=== PATIENT | male | born 2000 | race Caucasian/White ===

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

== ENCOUNTER 2021-05-23 09:41 | Emergency (ER) | payer SELFPAY ==
[2021-05-23 09:48] VITALS: BP 154/90; PULSE 124; RESP 16; TEMP 36.9; O2SAT 97; BMI 27.1
--- NOTE | 2021-05-23 10:03 | ED_ITS ---
Documented by User: WILLIAM Gomez 05/23/21 11:37 HPI - Weakness General: Chief complaint: Weakness Stated complaint: Numbess Time Seen by Provider: 05/23/21 09:45 History of Present Illness: Patient arrives complain about diarrhea x1 week. Said he is able to eat and drink but is just coming out the other end. That he feels dizzy when he stands up. Has been exposed to some people sick at work. Patient also states he has some anxiety in life and that he is getting ready to move out from his home into an apartment and that worries him. Patient said he drinks 2-3 beers a night while he is on the computer talking other folks. Denies any depression. Does not drink any energy drinks. Takes Zoloft for anxiety. Has had some chills denies fever. Associated symptoms: Reports nausea; Denies chest pain, chills, fever(s), headache(s) or vomiting Review of Systems Const: Denies: fever(s), chills or body aches Eyes: Denies: eye discomfort ENMT: Denies: throat pain Card: Denies: chest pain Resp: Denies: dyspnea GI: Reports: nausea and diarrhea; Denies: abdominal pain or vomiting Skin/Breast: Denies: rash Neuro: Denies: headache(s) Psych: Denies: depression or suicidal ideation [facility] ED PFSH: Medical History (Updated 05/23/21 @ 11:33 by WILLIAM Gomez) Anxiety History of abdominal hernia Family History (Updated 01/03/21 @ 09:20 by Daja Brewer LPN) Other CAD (coronary artery disease) Diabetes Social History (Updated 01/03/21 @ 09:20 by Daja Brewer LPN) Smoking and tobacco status: former smoker Alcohol intake: current Alcohol intake frequency: holidays/special occasions only Marital status: Single Number of children: 0 Current occupational status: employed Physical Exam Const: COMMON NORMALS: no acute distress, patient oriented x3 and alert HENMT: COMMON NORMALS: normocephalic and external ears normal HEAD & SCALP: normocephalic EXTERNAL EAR: Yes external ears normal Eye: COMMON NORMALS: EOMs intact bilaterally Neck/C-Spine: COMMON NORMALS: no JVD Resp: COMMON NORMALS: normal respiratory effort and No use of accessory muscles Cardio: COMMON NORMALS: no JVD RATE: tachycardic GI: AUSCULTATION: Yes Hyperactive bowel sounds present PALPATION: Yes Tenderness to palpation present (GI) (Generalized) Extremity: COMMON NORMALS: normal to inspection and full ROM Neuro: COMMON NORMALS: patient oriented x3 SENSORIUM/ORIENTATION: Yes alert Psych: COMMON NORMALS: mental status grossly normal Skin: COMMON NORMALS: no rashes or lesions noted GENERAL SKIN EXAM: no rashes or lesions noted Course Vital Signs: Vital signs: Vital Signs Temperature 98.4 F 05/23/21 09:48 Pulse Rate 82 05/23/21 11:30 Respiratory Rate 18 05/23/21 11:30 Blood Pressure 154/82 05/23/21 11:30 Pulse Oximetry 98 05/23/21 11:30 MDM - Weakness Medical Decision Making Patient presents with diarrhea and numbness in his body. Patient also going through increased amount of stress in his life. After reviewing labs and having a long discussion with patient it seems that patient's problems were related to anxiety and stress in his life. Patient's been on Zoloft for couple months of 50 mg and has had some mild improvement. Patient is asking what else can have that would help him. I recommend going to [facility] and have a counselor to get some tools in his toolbox to work through his anxiety that he feels. His dad age 14 he moved up from his mother's house he just recently and he is going to school full-time working full-time and just has a lot of stressors. Patient does not appear to have any infection that might be causing his diarrhea and I believe his diarrhea is possibly caused by his increased stress. Given couple days off work so recuperate encourage exercise eating correctly take medications as prescribed and follow-up with [facility]. Lab Data : 05/23/21 10:25 05/23/21 10:25 Laboratory Results WBC 6.2 10^3/uL (4.5-13.0) 05/23/21 10:25 RBC 5.51 10^6/uL (4.1-5.3) H 05/23/21 10:25 Hgb 16.6 g/dL (11.7-16.6) 05/23/21 10:25 Hct 49.2 % (42.0-52.0) 05/23/21 10:25 MCV 89.3 fl (80-94) 05/23/21 10:25 MCH 30.1 pg (28.0-34.0) 05/23/21 10:25 MCHC 33.7 g/dL (30.0-36.0) 05/23/21 10:25 RDW 11.9 % (12.1-15.1) L 05/23/21 10:25 Plt Count 268 10^3/cmm (130-400) 05/23/21 10:25 MPV 10.0 fL (7.4-10.4) 05/23/21 10:25 Neut % (Auto) 50.6 % 05/23/21 10:25 Lymph % (Auto) 36.4 % 05/23/21 10:25 Manati % (Auto) 10.7 % 05/23/21 10:25 Eos % (Auto) 1.5 % 05/23/21 10:25 Baso % (Auto) 0.5 % 05/23/21 10:25 Neut # (Auto) 3.11 10^3/uL (1.8-8.0) 05/23/21 10:25 Lymph # (Auto) 2.2 10^3/uL (1.5-6.5) 05/23/21 10:25 [place]ati # (Auto) 0.7 10^3/uL (0.2-0.9) 05/23/21 10:25 Eos # (Auto) 0.1 10^3/uL (0.0-0.8) 05/23/21 10:25 Baso # (Auto) 0.0 10^3/uL (0.0-0.1) 05/23/21 10:25 Nucleated RBC % (auto) 0 % 05/23/21 10:25 Nucleated RBCs # 0.0 /100WBC 05/23/21 10:25 Sodium 139 mmol/L (136-145) 05/23/21 10:25 Potassium 4.1 mmol/L (3.5-5.1) 05/23/21 10:25 Chloride 102 mmol/L (98-107) 05/23/21 10:25 Carbon Dioxide 26 mmol/L (22-29) 05/23/21 10:25 Anion Gap 15.1 (5-19) 05/23/21 10:25 BUN 10 mg/dL (6-20) 05/23/21 10:25 Creatinine 0.6 mg/dL (0.7-1.2) L 05/23/21 10:25 GFR Calculation 171.8 mL/min (90-130) H 05/23/21 10:25 Glucose 136 mg/dL (65-115) H 05/23/21 10:25 Calculated Osmolality 289 mOsm/kg (285-295) 05/23/21 10:25 Calcium 9.3 mg/dL (8.5-10.5) 05/23/21 10:25 Total Bilirubin 0.7 mg/dL (0.15-1.2) 05/23/21 10:25 AST 26 U/L (0-40) 05/23/21 10:25 ALT 21 U/L (0-41) 05/23/21 10:25 Alkaline Phosphatase 69 IU/L (40-130) 05/23/21 10:25 Total Protein 7.8 g/dL (6.6-8.7) 05/23/21 10:25 Albumin 5.3 g/dL (3.5-5.2) H 05/23/21 10:25 Globulin 2.5 g/dL (1.3-4.6) 05/23/21 10:25 Discharge Plan Discharge Patient Disposition: Home Clinical Impression: ROLANDA (generalized anxiety disorder), Diarrhea Condition: Stable Prescriptions: New Zoloft 100 mg tablet 100 mg PO DAILY Qty: 20 0RF Lomotil 2.5-0.025 mg tablet 1 tab PO TID PRN (Reason: diarrhea) Qty: 10 0RF Discontinued sertraline 50 mg tablet 50 mg PO DAILY Qty: 30 1RF Discharge Orders: Discharge ED (Routine); Ordered 05/23/21 Ordered By: Last Holly Referrals: Tommie Rivera MD [Primary Care Provider] - Discharge Diet: Advance as tolerated Discharge Activity: Resume usual activity Patient Instructions: Acute Diarrhea (ED), Anxiety (ED) Activity Restrictions/Additional Instructions: Follow-up with medical provider as directed. Take medications as prescribed. Return to the ER or your medical provider if condition worsens. Please read and understand discharge instructions. If any questions ask please. Hospital will contact you with appointment for behavioral health care. Stop your Zoloft 50 mg and started on the 100 mg. Stand Alone Forms: Work/School Release Coding Level of Care Code ED Forming Machine Upkeep Mechanic Helper for Chg Fwd Exam Comprehensive Documented by User: Tevin Cole DO 05/23/21 13:22 HPI - Weakness General: Chief complaint: Weakness Stated complaint: Numbess Time Seen by Provider: 05/23/21 09:45 [facility] ED PFSH: Medical History (Updated 05/23/21 @ 11:33 by WILLIAM Gomez) Anxiety History of abdominal hernia Family History (Updated 01/03/21 @ 09:20 by Daja Brewer LPN) Other CAD (coronary artery disease) Diabetes Social History (Updated 01/03/21 @ 09:20 by Daja Brewer LPN) Smoking and tobacco status: former smoker Alcohol intake: current Alcohol intake frequency: holidays/special occasions only Marital status: Single Number of children: 0 Current occupational status: employed Course Vital Signs: Vital signs: Vital Signs Temperature 98.4 F 05/23/21 09:48 Pulse Rate 82 05/23/21 11:30 Respiratory Rate 18 05/23/21 11:30 Blood Pressure 154/82 05/23/21 11:30 Pulse Oximetry 98 05/23/21 11:30 MDM - Weakness Medical Decision Making Patient presents with diarrhea and numbness in his body. Patient also going through increased amount of stress in his life. After reviewing labs and having a long discussion with patient it seems that patient's problems were related to anxiety and stress in his life. Patient's been on Zoloft for couple months of 50 mg and has had some mild improvement. Patient is asking what else can have that would help him. I recommend going to [facility] and have a counselor to get some tools in his toolbox to work through his anxiety that he feels. His dad age 14 he moved up from his mother's house he just recently and he is going to school full-time working full-time and just has a lot of stressors. Patient does not appear to have any infection that might be causing his diarrhea and I believe his diarrhea is possibly caused by his increased stress. Given couple days off work so recuperate encourage exercise eating correctly take medications as prescribed and follow-up with [facility]. Chart reviewed and patient discussed with [facility]. Agree with assessment and plan. Lab Data : 05/23/21 10:25 05/23/21 10:25 Laboratory Results WBC 6.2 10^3/uL (4.5-13.0) 05/23/21 10:25 RBC 5.51 10^6/uL (4.1-5.3) H 05/23/21 10:25 Hgb 16.6 g/dL (11.7-16.6) 05/23/21 10:25 Hct 49.2 % (42.0-52.0) 05/23/21 10:25 MCV 89.3 fl (80-94) 05/23/21 10:25 MCH 30.1 pg (28.0-34.0) 05/23/21 10:25 MCHC 33.7 g/dL (30.0-36.0) 05/23/21 10:25 RDW 11.9 % (12.1-15.1) L 05/23/21 10:25 Plt Count 268 10^3/cmm (130-400) 05/23/21 10:25 MPV 10.0 fL (7.4-10.4) 05/23/21 10:25 Neut % (Auto) 50.6 % 05/23/21 10:25 Lymph % (Auto) 36.4 % 05/23/21 10:25 Manati % (Auto) 10.7 % 05/23/21 10:25 Eos % (Auto) 1.5 % 05/23/21 10:25 Baso % (Auto) 0.5 % 05/23/21 10:25 Neut # (Auto) 3.11 10^3/uL (1.8-8.0) 05/23/21 10:25 Lymph # (Auto) 2.2 10^3/uL (1.5-6.5) 05/23/21 10:25 [place] # (Auto) 0.7 10^3/uL (0.2-0.9) 05/23/21 10:25 Eos # (Auto) 0.1 10^3/uL (0.0-0.8) 05/23/21 10:25 Baso # (Auto) 0.0 10^3/uL (0.0-0.1) 05/23/21 10:25 Nucleated RBC % (auto) 0 % 05/23/21 10:25 Nucleated RBCs # 0.0 /100WBC 05/23/21 10:25 Sodium 139 mmol/L (136-145) 05/23/21 10:25 Potassium 4.1 mmol/L (3.5-5.1) 05/23/21 10:25 Chloride 102 mmol/L (98-107) 05/23/21 10:25 Carbon Dioxide 26 mmol/L (22-29) 05/23/21 10:25 Anion Gap 15.1 (5-19) 05/23/21 10:25 BUN 10 mg/dL (6-20) 05/23/21 10:25 Creatinine 0.6 mg/dL (0.7-1.2) L 05/23/21 10:25 GFR Calculation 171.8 mL/min (90-130) H 05/23/21 10:25 Glucose 136 mg/dL (65-115) H 05/23/21 10:25 Calculated Osmolality 289 mOsm/kg (285-295) 05/23/21 10:25 Calcium 9.3 mg/dL (8.5-10.5) 05/23/21 10:25 Total Bilirubin 0.7 mg/dL (0.15-1.2) 05/23/21 10:25 AST 26 U/L (0-40) 05/23/21 10:25 ALT 21 U/L (0-41) 05/23/21 10:25 Alkaline Phosphatase 69 IU/L (40-130) 05/23/21 10:25 Total Protein 7.8 g/dL (6.6-8.7) 05/23/21 10:25 Albumin 5.3 g/dL (3.5-5.2) H 05/23/21 10:25 Globulin 2.5 g/dL (1.3-4.6) 05/23/21 10:25 Discharge Plan Discharge Patient Disposition: Home Clinical Impression: ROLANDA (generalized anxiety disorder), Diarrhea Condition: Stable Prescriptions: New Zoloft 100 mg tablet 100 mg PO DAILY Qty: 20 0RF Lomotil 2.5-0.025 mg tablet 1 tab PO TID PRN (Reason: diarrhea) Qty: 10 0RF Discontinued sertraline 50 mg tablet 50 mg PO DAILY Qty: 30 1RF Discharge Orders: Discharge ED (Routine); Ordered 05/23/21 Ordered By: Last Holly Referrals: Tommie Rivera MD [Primary Care Provider] - Discharge Diet: Advance as tolerated Discharge Activity: Resume usual activity Patient Instructions: Acute Diarrhea (ED), Anxiety (ED) Activity Restrictions/Additional Instructions: Follow-up with medical provider as directed. Take medications as prescribed. Return to the ER or your medical provider if condition worsens. Please read and understand discharge instructions. If any questions ask please. Hospital will contact you with appointment for behavioral health care. Stop your Zoloft 50 mg and started on the 100 mg. Stand Alone Forms: Work/School Release Coding Level of Care Code ED Forming Machine Upkeep Mechanic Helper for Kelsy Fwd Exam Comprehensive
[2021-05-23 10:22] VITALS: BP 147/98; BP 166/89; BP 169/80; PULSE 104; PULSE 113; PULSE 96
[2021-05-23] MEDS: diphenoxylate/atropine Tablet 1 TAB PO (10:25)
[2021-05-23] MEDS: lactated ringers 1,000 ML 999 ML IV (10:25)
[2021-05-23 10:32] LABS: Basophils % 0.5 %; Eosinophils # 0.1 10^3/uL (0.0-0.8); Eosinophils % 1.5 %; Hematocrit 49.2 % (42.0-52.0); Hemoglobin 16.6 g/dL (11.7-16.6); Lymphocytes # 2.2 10^3/uL (1.5-6.5); Lymphocytes % 36.4 %; Mean Corpuscular HGB Conc 33.7 g/dL (30.0-36.0); Mean Corpuscular Hemoglobin 30.1 pg (28.0-34.0); Mean Corpuscular Volume 89.3 fl (80-94); Monocytes # 0.7 10^3/uL (0.2-0.9); Monocytes % 10.7 %; Neutrophils # 3.11 10^3/uL (1.8-8.0); Neutrophils % 50.6 %; Nucleated Red Blood Cells % 0 %; Platelet Count 268 10^3/cmm (130-400); Red Blood Count 5.51 10^6/uL (4.1-5.3); Red Cell Distribution Width 11.9 % (12.1-15.1); White Blood Count 6.2 10^3/uL (4.5-13.0)
[2021-05-23 11:00] LABS: Alanine Aminotransferase 21 U/L (0-41); Albumin Level 5.3 g/dL (3.5-5.2); Alkaline Phosphatase 69 IU/L (40-130); Anion Gap 15.1 (5-19); Aspartate Amino Transferase 26 U/L (0-40); Blood Urea Nitrogen 10 mg/dL (6-20); Calcium 9.3 mg/dL (8.5-10.5); Carbon Dioxide 26 mmol/L (22-29); Chloride 102 mmol/L (98-107); Globulin 2.5 g/dL (1.3-4.6); Glomerular Filtration Rate 171.8 mL/min (90-130); Glucose 136 mg/dL (65-115); Osmolality Calculated 289 mOsm/kg (285-295); Potassium 4.1 mmol/L (3.5-5.1); Sodium 139 mmol/L (136-145); Total Bilirubin 0.7 mg/dL (0.15-1.2); Total Protein 7.8 g/dL (6.6-8.7)
[2021-05-23 11:30] VITALS: BP 154/82; PULSE 82; RESP 18; O2SAT 98
== END 2021-05-23 11:44 | disposition home or self-care (01) ==
PROVIDERS: Emergency Provider Nurse Practitioner Family; PCP Family Medicine Adult Medicine
DX: F41.1 Generalized anxiety disorder (principal); R19.7 Diarrhea, unspecified; Z87.891 Personal history of nicotine dependence
CPT/HCPCS: 80053; 85025; 96360; 99283

== ENCOUNTER 2021-07-03 03:26 | Emergency (ER) | payer SELFPAY ==
--- NOTE | 2021-07-03 03:28 | W.ED.HA ---
HPI - Headache General: Chief Complaint: Anxiety Stated Complaint: Headache Time Seen by Provider: 07/03/21 03:28 History of Present Illness: Mr. Fuentes is a 21-year-old gentleman with history of anxiety who presents to the emergency department due to insomnia and headache as well as anxiety. He reports trying to go to sleep earlier this past evening and having difficulty. He tried meditation but feels like he still cannot sleep. He has perhaps occasionally had similar episodes in the past. He describes a bitemporal throbbing headache which is not the worst headache of his life, was not thunderclap in onset, and no associated fevers or neck stiffness, no other red flags appreciated. He endorses poor compliance with Zoloft and has not tried over the counter medications for sleep aid. Intensity of anxiety is mild to moderate lately. Denies new social stressors, caffeine intake changes, or other known provoking factors. He notes mild chest discomfort at times associated with a recent change to eating more in the afternoon/early evening. Otherwise denies significant changes in health, and no other exacerbating or alleviating factors identified. Pertinent past history: other Onset (ago): hour(s) Onset description: gradually Location: temporal Severity: mild Quality & Timing: throbbing Exacerbating factors: none Relieving factors: nothing Review of Systems General: Reports: 10 or more systems reviewed and unremarkable except in HPI and below PFSH ED PFSH: Medical History Anxiety History of abdominal hernia Family History Other CAD (coronary artery disease) Diabetes Social History Smoking and tobacco status: former smoker Alcohol intake: current Alcohol intake frequency: holidays/special occasions only Marital status: Single Number of children: 0 Current occupational status: employed Physical Exam Const: COMMON NORMALS: alert GENERAL APPEARANCE: cooperative and well developed HENMT: COMMON NORMALS: normocephalic and atraumatic HEAD & SCALP: normocephalic and atraumatic Eye: COMMON NORMALS: conjunctivae normal CONJUNCTIVA: Yes conjunctivae normal SCLERA: sclerae normal Neck/C-Spine: COMMON NORMALS: supple and no meningeal signs GENERAL: Yes trachea midline Resp: COMMON NORMALS: clear to auscultation bilaterally EFFORT & INSPECTION: Yes able to speak in complete sentences AUSCULTATION: clear to auscultation bilaterally Cardio: COMMON NORMALS: regular rate and regular rhythm RATE: regular rate RHYTHM: regular rhythm GI: COMMON NORMALS: Soft to palpation PALPATION: Yes Soft to palpation and No Tenderness to palpation present (GI) Extremity: GENERAL: Yes normal exam except as noted and No edema Neuro: COMMON NORMALS: moves all extremities SENSORIUM/ORIENTATION: Yes alert and No Orientation impaired MENINGEAL SIGNS: Yes no meningeal signs Psych: COMMON NORMALS: mental status grossly normal and Normal thought process present THOUGHT PROCESS: Normal thought process present Course ED course: - Patient was seen and evaluated by me at bedside - Vital signs obtained - Initial evaluation notable for exam as above - EKG at 0401 personally interpreted by me. Sinus rhythm with mild nonspecific abnormalities. No STEMI. - Patient counseled on possible etiologies including multifactorial nature of insomnia. Recommended to trial Benadryl or melatonin. Additionally for chest discomfort may trial medication for GERD. Offered prescriptions for the patient expressed that he will pick them up [id number]. - Based on patient history, evaluation, and testing as interpreted the most likely cause of the patient's condition is anxiety and insomnia as well as headache -I discussed followup plan and return precautions. The patient verbalized understanding and felt safe for discharge. - Patient discharged in satisfactory condition. Note: Click bubbles or prepopulated butler in note writing are used for assistance with data collection and billing and are inherently more limited than narrative and other text portions of this note. Please use narrative for additional clinical history and defer to narrative/free test for any case of contradictory information. If information appears in only free text or click bubble it should be considered present or absent as reported. Please contact note television script writer for clarifications of clinical information or contradictory information. MDM is a brief summary, contradictory or erroneous seeming information should be clarified and full note should be reviewed. Vital Signs: Vital signs: Vital Signs Temperature 98.7 F 07/03/21 03:32 Pulse Rate 90 07/03/21 04:16 Respiratory Rate 18 07/03/21 04:16 Blood Pressure 148/71 07/03/21 04:16 Pulse Oximetry 95 07/03/21 04:16 MDM - Headache Medical Decision Making 21-year-old gentleman with history of anxiety not reliably taking his Zoloft presenting due to insomnia and headache. No red flag symptoms regarding headache, no reported trauma. Discussed multifactorial nature of insomnia and gave suggestions with regard to trial of [id number] medications. Patient satisfactory for continued outpatient follow-up. Medical Records I reviewed the patient's medical records. Lab Data I reviewed the patient's lab results. Discharge Plan Discharge Patient Disposition: Home Clinical Impression: Anxiety, Insomnia, Headache Condition: Stable Prescriptions: No Action Zoloft 100 mg tablet 100 mg PO DAILY Qty: 20 0RF Lomotil 2.5-0.025 mg tablet 1 tab PO TID PRN (Reason: diarrhea) Qty: 10 0RF Discharge Orders: Discharge ED (Routine); Ordered 07/03/21 Ordered By: Diego Gross Referrals: Tommie Rivera MD [Primary Care Provider] - Discharge Diet: Usual diet Discharge Activity: Resume usual activity Patient Instructions: Chest Pain (ED), Acute Headache (ED), Insomnia (ED) Activity Restrictions/Additional Instructions: Thank you for visiting the emergency department. You were seen and evaluated for difficulty sleeping associated with chest discomfort and also headache. The exact cause of your symptoms is unclear though likely multifactorial. You may use [id number] medications such as Benadryl and/or melatonin as a sleep aid. For the chest discomfort I would recommend using a proton pump inhibitor or H2 ivan which can also be purchased [id number] and see if this helps. Additionally, as discussed I recommend follow-up with your primary care provider regarding your Zoloft. Please return to the emergency department for worsening symptoms or anything else that you are concerned about and feel needs emergency department evaluation. Stand Alone Forms: Work/School Release Coding Level of Care Code ED Variety Saw Operator for Kelsy Abel
[2021-07-03 03:32] VITALS: BP 155/82; PULSE 90; RESP 18; TEMP 37.1; O2SAT 97; BMI 25.8
[2021-07-03 03:47] VITALS: BP 149/95; PULSE 86; RESP 17; O2SAT 96
--- NOTE | 2021-07-03 03:56 | ECG_ITS ---
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 Measurements Intervals [place] Rate: 78 P: 53 KS: 137 QRS: 69 QRSD: 113 T: 47 QT: 369 QTc: 421 Interpretive Statements SINUS RHYTHM WITH SINUS ARRHYTHMIA MODERATE INTRAVENTRICULAR CONDUCTION DELAY [110+ ms QRS DURATION] Compared to ECG 12/13/2020 18:48:19 Intraventricular conduction delay now present Electronically Signed On 07-03-2021 23:30:47 CDT by Yaritza Pandya M.D. [id number]
[2021-07-03 04:16] VITALS: BP 148/71; PULSE 90; RESP 18; O2SAT 95
== END 2021-07-03 04:18 | disposition home or self-care (01) ==
PROVIDERS: Emergency Provider Emergency Medicine; PCP Family Medicine Adult Medicine
DX: F41.9 Anxiety disorder, unspecified (principal); Z87.891 Personal history of nicotine dependence; G47.00 Insomnia, unspecified; R51.9 Headache, unspecified
CPT/HCPCS: 93005; 99282

== ENCOUNTER 2021-08-02 12:50 | Emergency (ER) | payer SELFPAY ==
[2021-08-02 13:01] VITALS: BP 172/100; PULSE 88; RESP 18; TEMP 37.5; O2SAT 97; BMI 27.9
--- NOTE | 2021-08-02 14:33 | CT_ITS ---
WS: [id number] CT HEAD NONCONTRAST HISTORY: headache TECHNIQUE: Contiguous axial imaging performed through the brain in 2.5 mm imaging. Bone and soft tiss ue windows. Sagittal and coronal reformats reviewed. All CT scans at [facility] use at least one of these dose optimization techniques: automated exposure control; mA and/or kV adjustment per pa tient size (includes targeted exams where dose is matched to clinical indication); or iterative recon struction. DLP: 881.3 mGy.cm COMPARISON: None available. No acute intracranial hemorrhage, midline shift or mass effect. No atrophy or prior infarcts or herniation. Ventricles: Normal size with no hydrocephalus. Paranasal sinuses: As visualized are clear. Mastoid air cells: Well pneumatized. Calvarium and scalp: Skull is intact with no soft tissue edema or swelling. CT/CT head wo con* [id number] IMPRESSION: Negative head CT.
--- NOTE | 2021-08-02 14:33 | ECG_ITS ---
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 Measurements Intervals [place] Rate: 70 P: 51 OK: 143 QRS: 74 QRSD: 109 T: 40 QT: 356 QTc: 387 Interpretive Statements SINUS RHYTHM Compared to ECG 07/03/2021 04:01:00 Sinus arrhythmia no longer present Intraventricular conduction delay no longer present Electronically Signed On 08-02-2021 20:40:56 CDT by Konrad Santos M.D. [id number]
--- NOTE | 2021-08-02 14:43 | ED_ITS ---
HPI - Weakness General: Chief complaint: Weakness Stated complaint: High Blood Pressure, fogginess, and neck area pain Time Seen by Provider: 08/02/21 14:33 History of Present Illness: Patient is a 21-year-old male comes to the ED with chest pain and high blood pressure. Patient was seen here in the ED on July 03 for similar complaint. he has been having chest pain now for over a month. He says the pain is located in the front part of his chest and then wraps around to his back. He rates the pain an 8 out of 10. He also endorses having a headache as well that feels like a pulsating pressure in his temples. He states that his headache has been going on now for over a month as well. Today while at work he checked his blood pressure and he had elevated blood pressure of 170s/ 116 while standing and then sat down and checked it again and it was 156/96. He is not on any blood pressure medication currently. Denies any numbness tingling to face or extremities or any weakness to 1 side of his body. Associated symptoms: Reports chest pain and headache(s); Denies chills, dysuria, fever(s), nausea or vomiting Review of Systems Const: Denies: fever(s), chills or fatigue Eyes: Denies: change in vision or eye discomfort ENMT: Denies: throat pain, odynophagia, nasal discharge or nasal congestion Card: Reports: chest pain; Denies: palpitations, edema, swelling of feet/ankles, dyspnea on exertion or orthopnea Resp: Denies: dyspnea, productive cough or non-productive cough GI: Denies: abdominal pain, nausea, vomiting, diarrhea, constipation or hematochezia : Denies: flank pain, difficulty urinating, dysuria or hematuria Musc: Denies: neck pain, back pain or extremity swelling Skin/Breast: Denies: rash or new lesions Neuro: Reports: headache(s); Denies: numbness in extremities or weakness in extremities [facility] ED PFSH: Medical History Anxiety History of abdominal hernia Family History Other CAD (coronary artery disease) Diabetes Social History Smoking and tobacco status: former smoker Alcohol intake: current Alcohol intake frequency: holidays/special occasions only Marital status: Single Number of children: 0 Current occupational status: employed Physical Exam Narrative: EXAM NARRATIVE: Patient is a 21-year-old male that appears very anxious here in the ED. He is asking me a lot of questions and is seems very worried about his health. Const: COMMON NORMALS: no acute distress, patient oriented x3, healthy appearing and alert GENERAL APPEARANCE: cooperative and anxious HENMT: COMMON NORMALS: normocephalic HEAD & SCALP: normocephalic MOUTH: Normal oral and palatal mucosa present THROAT: posterior oropharynx normal and uvula midline Eye: COMMON NORMALS: Equal, round and reactive pupils present, EOMs intact bilaterally and conjunctivae normal CONJUNCTIVA: Yes conjunctivae normal PUPIL: Yes Equal, round and reactive pupils present Neck/C-Spine: COMMON NORMALS: supple GENERAL: Yes normal visual inspection Resp: COMMON NORMALS: normal respiratory effort, No retractions, No use of accessory muscles and clear to auscultation bilaterally AUSCULTATION: clear to auscultation bilaterally Cardio: COMMON NORMALS: regular rate, regular rhythm, S1 normal heart sound present, S2 normal heart sound present, No gallops present (Cardio), No clicks present (Cardio), No murmurs present (Cardio) and Peripheral pulses 2+ throughout RATE: regular rate RHYTHM: regular rhythm HEART SOUNDS: S1 normal heart sound present and S2 normal heart sound present PERIPHERAL PULSES: Peripheral pulses 2+ throughout GI: COMMON NORMALS: Normal to inspection, nondistended, normoactive bowel sounds present, Soft to palpation, non-tender and no masses PALPATION: Yes Soft to palpation : COMMON NORMALS: Yes no CVA tenderness BLADDER/KIDNEY EXAM: Yes no CVA tenderness Back/Pelvis: COMMON NORMALS: no CVA tenderness Extremity: COMMON NORMALS: normal to inspection Neuro: COMMON NORMALS: patient oriented x3, CN's II-XII intact bilaterally, moves all extremities, no focal motor deficits and no sensory deficits noted SENSORIUM/ORIENTATION: Yes alert COORDINATION/BALANCE: [id number] test normal SPEECH: speech normal SENSORY EXAM: Yes extremities (intact) MOTOR EXAM: 5/5 motor strength present throughout COORDINATION: [id number] test normal Skin: GENERAL SKIN EXAM: dry skin Course Vital Signs: Vital signs: Vital Signs Temperature 99.5 F 08/02/21 13:01 Pulse Rate 88 08/02/21 13:01 Respiratory Rate 18 08/02/21 15:19 Blood Pressure 146/87 08/02/21 15:19 Pulse Oximetry 97 08/02/21 15:19 MDM - Weakness Medical Decision Making Patient is a 21-year-old male who comes to the ED with chest pain. He was seen here in the ED for same complaint back on July 03 and was diagnosed with anxiety. Patient said his feelings of chest pain and headache have been going on now for several months. Vitals are stable and patient appears in no acute distress or pain. He does appear very anxious and worried about his health. The rest of his exam is benign. Labs are all unremarkable troponin negative. Head CT was normal and chest x-ray showed no acute findings. EKG showed normal sinus rhythm with no ST segment elevation or depression seen. Patient diagnosed with anxiety and was stable for discharge home. Patient did not want any anxiety meds at this time and was put on sertraline a month ago to help with anxiety and has not started taking it yet. I encouraged him to follow-up with his doctor in the next week and consider taking the sertraline to help with anxiety. Return to ED precautions given. Patient understood and agreed with plan. Lab Data I reviewed the patient's lab results. : 08/02/21 15:05 08/02/21 15:[address] 08/02/21 14:33 IMPRESSION: Negative head CT. Chest X-Ray 08/02/21 15:10 IMPRESSION: No acute chest abnormality. Laboratory Results WBC 8.1 10^3/uL (4.5-13.0) 08/02/21 15:05 RBC 5.10 10^6/uL (4.1-5.3) 08/02/21 15:05 Hgb 15.9 g/dL (11.7-16.6) 08/02/21 15:05 Hct 46.9 % (42.0-52.0) 08/02/21 15:05 MCV 92.0 fl (80-94) 08/02/21 15:05 MCH 31.2 pg (28.0-34.0) 08/02/21 15:05 MCHC 33.9 g/dL (30.0-36.0) 08/02/21 15:05 RDW 11.9 % (12.1-15.1) L 08/02/21 15:05 Plt Count 233 10^3/cmm (130-400) 08/02/21 15:05 MPV 9.9 fL (7.4-10.4) 08/02/21 15:05 Neut % (Auto) 76.8 % 08/02/21 15:05 Lymph % (Auto) 14.1 % 08/02/21 15:05 [place] % (Auto) 8.2 % 08/02/21 15:05 Eos % (Auto) 0.1 % 08/02/21 15:05 Baso % (Auto) 0.4 % 08/02/21 15:05 Neut # (Auto) 6.24 10^3/uL (1.8-8.0) 08/02/21 15:05 Lymph # (Auto) 1.2 10^3/uL (1.5-6.5) L 08/02/21 15:05 [place] # (Auto) 0.7 10^3/uL (0.2-0.9) 08/02/21 15:05 Eos # (Auto) 0.0 10^3/uL (0.0-0.8) 08/02/21 15:05 Baso # (Auto) 0.0 10^3/uL (0.0-0.1) 08/02/21 15:05 Nucleated RBC % (auto) 0 % 08/02/21 15:05 Nucleated RBCs # 0.0 /100WBC 08/02/21 15:05 Sodium 142 mmol/L (136-145) 08/02/21 15:05 Potassium 4.3 mmol/L (3.5-5.1) 08/02/21 15:05 Chloride 105 mmol/L (98-107) 08/02/21 15:05 Carbon Dioxide 25 mmol/L (22-29) 08/02/21 15:05 Anion Gap 16.3 (5-19) 08/02/21 15:05 BUN 8 mg/dL (6-20) 08/02/21 15:05 Creatinine 0.7 mg/dL (0.7-1.2) 08/02/21 15:05 GFR Calculation 143.8 mL/min (90-130) H 08/02/21 15:05 Glucose 117 mg/dL (65-115) H 08/02/21 15:05 Calculated Osmolality 293 mOsm/kg (285-295) 08/02/21 15:05 Calcium 10.0 mg/dL (8.5-10.5) 08/02/21 15:05 Total Bilirubin 0.3 mg/dL (0.15-1.2) 08/02/21 15:05 AST 19 U/L (0-40) 08/02/21 15:05 ALT 20 U/L (0-41) 08/02/21 15:05 Alkaline Phosphatase 70 IU/L (40-130) 08/02/21 15:05 Troponin T Gen 5 ng/L 6 ng/L (0-15) 08/02/21 15:05 Total Protein 7.5 g/dL (6.6-8.7) 08/02/21 15:05 Albumin 5.1 g/dL (3.5-5.2) 08/02/21 15:05 Globulin 2.4 g/dL (1.3-4.6) 08/02/21 15:05 EKG Data EKG 1: EKG interpretation date: 08/02/21 Interpretation: Normal sinus rhythm, 70 bpm, no ST segment elevation or depression seen. Discharge Plan Discharge Patient Disposition: Home Clinical Impression: Anxiety Condition: Stable Prescriptions: No Action multivitamin Tablet 1 tab PO DAILY 0RF Discharge Orders: Discharge ED (Routine); Ordered 08/02/21 Ordered By: Hesham Benz Referrals: Tommie Rivera MD [Primary Care Provider] - Discharge Diet: Regular Discharge Activity: Resume usual activity Patient Instructions: Anxiety (ED) Activity Restrictions/Additional Instructions: Follow-up with medical provider as directed in the next 1 to 2 weeks for reevaluation. Continue taking all home medications as previously prescribed. Return to the ER or your medical provider if condition worsens. Please read and understand discharge instructions. Thank you for choosing [facility] for your healthcare needs today. Please realize this is an emergency room and that we are providing you with a medical screening exam and this may not be complete and all inclusive of all the testing and or work up that you may need to determine your ailment or severity of your illness. It is very important that you follow up as instructed or that you return to the Emergency Department should you have concerns or if your condition changes or worsens in any way. Stand Alone Forms: Work/School Release Coding Level of Care Code ED Eligibility Technician for Kelsy Fwd Exam Comprehensive
--- NOTE | 2021-08-02 15:10 | XR_ITS ---
WS: [id number] XR chest 1V portable [id number] REASON FOR EXAM: cp FINDINGS: Chest is unchanged compared to 12/13/2020. Heart and mediastinum are within normal limits. Calcified granulomatous disease in both hemithoraces. No active pulmonary parenchymal or pleural disease noted. Bony thorax is intact with no focal abnormality. XR/XR chest 1V portable [id number] IMPRESSION: No acute chest abnormality.
[2021-08-02 15:16] LABS: Basophils % 0.4 %; Eosinophils % 0.1 %; Hematocrit 46.9 % (42.0-52.0); Hemoglobin 15.9 g/dL (11.7-16.6); Lymphocytes # 1.2 10^3/uL (1.5-6.5); Lymphocytes % 14.1 %; Mean Corpuscular HGB Conc 33.9 g/dL (30.0-36.0); Mean Corpuscular Hemoglobin 31.2 pg (28.0-34.0); Mean Platelet Volume 9.9 fL (7.4-10.4); Monocytes # 0.7 10^3/uL (0.2-0.9); Monocytes % 8.2 %; Neutrophils # 6.24 10^3/uL (1.8-8.0); Neutrophils % 76.8 %; Nucleated Red Blood Cells % 0 %; Platelet Count 233 10^3/cmm (130-400); Red Cell Distribution Width 11.9 % (12.1-15.1); White Blood Count 8.1 10^3/uL (4.5-13.0)
[2021-08-02 15:19] VITALS: BP 146/87; RESP 18; O2SAT 97
[2021-08-02 15:35] LABS: Alanine Aminotransferase 20 U/L (0-41); Albumin Level 5.1 g/dL (3.5-5.2); Alkaline Phosphatase 70 IU/L (40-130); Anion Gap 16.3 (5-19); Aspartate Amino Transferase 19 U/L (0-40); Blood Urea Nitrogen 8 mg/dL (6-20); Carbon Dioxide 25 mmol/L (22-29); Chloride 105 mmol/L (98-107); Globulin 2.4 g/dL (1.3-4.6); Glomerular Filtration Rate 143.8 mL/min (90-130); Glucose 117 mg/dL (65-115); Osmolality Calculated 293 mOsm/kg (285-295); Potassium 4.3 mmol/L (3.5-5.1); Sodium 142 mmol/L (136-145); Total Bilirubin 0.3 mg/dL (0.15-1.2); Total Protein 7.5 g/dL (6.6-8.7)
[2021-08-02 15:36] LABS: Troponin T (5th) Once 6 ng/L (0-15)
[2021-08-02] MEDS: ketorolac 30 mg/mL INJ IVP (16:08)
[2021-08-02] MEDS: lidocaine 2% viscous 15 ML, aluminum-mag hydrox-simethicon 30 ML, sucralfate oral liq 1 GM PO (16:10)
== END 2021-08-02 16:31 | disposition home or self-care (01) ==
PROVIDERS: Emergency Provider Physician Assistant; PCP Family Medicine Adult Medicine
DX: F41.9 Anxiety disorder, unspecified (principal)
CPT/HCPCS: 70450; 71045; 80053; 84484; 85025; 93005; 96374; 99285; J1885

== ENCOUNTER 2021-08-05 08:35 | Emergency (ER) | payer SELFPAY ==
[2021-08-05 08:46] VITALS: BP 154/86; PULSE 75; RESP 18; TEMP 36.6; O2SAT 98; BMI 28.7
[2021-08-05 08:50] VITALS: BP 127/97; PULSE 68; RESP 18; TEMP 36.8; O2SAT 96
--- NOTE | 2021-08-05 09:08 | ECG_ITS ---
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 Measurements Intervals [place] Rate: 75 P: 63 LA: 144 QRS: 81 QRSD: 97 T: 64 QT: 366 QTc: 409 Interpretive Statements SINUS RHYTHM Compared to ECG 08/02/2021 15:42:33 No significant changes Electronically Signed On 08-05-2021 17:41:33 CDT by Yovana Cruz M.D. [id number]
--- NOTE | 2021-08-05 09:08 | ED_ITS ---
HPI - General Adult General: Chief complaint: General Medical Stated complaint: Dizziness Time Seen by Provider: 08/05/21 08:37 Source: patient Mode of arrival: ambulatory Limitations: no limitations History of Present Illness: Patient is a 21-year-old male who presents to ED today with complaint of multiple complaints but mainly dizziness that started this morning. Patient states dizziness has not affected his gait or vision at all. Denies palpitations/racing heart. Patient has been seen in our facility several times for nonspecific complaints including headache, chest pain, anxiety, dizziness, elevated blood pressures, etc. He states he has been diagnosed with anxiety previously but feels there may be something further going on. Patient was seen at our facility about 3 days ago for elevated blood pressure. He was also having chest pains and a headache. Work-up including head CT was negative. Patient states he has been checking blood pressures at home over the weekend and they have been running 140?160s systolic. Patient states he had been placed on sertraline by his PCP Dr. Rivera for anxiety/depression. He states he stopped taking this medication 2 months ago but states he did take a 100 mg tablet yesterday evening. Patient reports only sleeping for about 3 hours last night. He is reporting chronic brain fog. He reports he feels like his general medical condition has been declining for about two years now. He states he has an appointment with PCP in 2 days. Relieving factors: none Exacerbating factors: none Associated symptoms: Reports chest pain and headache(s); Deny confusion, dyspnea, malaise, nausea, rash, palpitations, syncope or vomiting Treatments prior to arrival: none Review of Systems Const: Denies: fever(s), chills, body aches, change in appetite, change in heydi ght, fatigue or malaise Eyes: Denies: change in vision, blurry vision, photophobia, eye discomfort, eye discharge, floaters or seeing flashes ENMT: Denies: throat pain, odynophagia, nasal discharge or nasal congestion Card: Reports: chest pain and lightheadedness; Denies: palpitations, irregular heart rhythm, edema, swelling of feet/ankles, syncope, pre-syncope, dyspnea on exertion, orthopnea, leg pain with exertion or acrocyanosis Resp: Reports: pain on inspiration; Denies: dyspnea, productive cough, non-productive cough, wheezing, stridor, change in phlegm color, hemoptysis or chest congestion GI: Denies: abdominal pain, nausea, vomiting or diarrhea : Denies: flank pain, difficulty urinating or hematuria Musc: Denies: neck pain, back pain, extremity pain or joint pain Skin/Breast: Denies: rash Neuro: Reports: headache(s) and dizziness; Denies: numbness in extremities, weakness in extremities, sensory changes, lack of coordination, difficulty walking, frequent falls, confusion, behavioral changes, Slurred speech present, difficulty communicating thoughts or seizure- like activity PFSH ED PFSH: Medical History Anxiety History of abdominal hernia Family History Other CAD (coronary artery disease) Diabetes Social History Smoking and tobacco status: former smoker Alcohol intake: current Alcohol intake frequency: holidays/special occasions only Marital status: Single Number of children: 0 Current occupational status: employed Physical Exam Const: COMMON NORMALS: no acute distress, patient oriented x3, no limitations, alert and well nourished GENERAL APPEARANCE: cooperative ORIENTATION/CONSCIOUSNESS: Yes awake, Yes oriented to person, Yes oriented to place and Yes oriented to time OTHER: patient verbally seems to convey feelings of anxiety/sense of doom regarding his condition however his body language is very nonchalant as he often is on his cell phone texting and often seems disengaged during my examination HENMT: COMMON NORMALS: normocephalic and atraumatic HEAD & SCALP: normal to inspection, normocephalic and atraumatic FACE & SINUS: normal facial exam Eye: COMMON NORMALS: Equal, round and reactive pupils present, EOMs intact bilaterally and conjunctivae normal GENERAL EYE: appearance normal, both eyes and all related structures and normal light reflex VISUAL CHO: No peripheral vision loss and No central vision loss PERIORBITAL: periorbital findings normal EYELID: eyelids normal CONJUNCTIVA: Yes conjunctivae normal PUPIL: Yes Equal, round and reactive pupils present DIRECT OPHTHALMOSCOPY: Yes normal light reflex OTHER: no nystagmus Neck/C-Spine: COMMON NORMALS: full ROM, no lymphadenopathy and no meningeal signs Resp: COMMON NORMALS: normal respiratory effort and clear to auscultation bilaterally AUSCULTATION: clear to auscultation bilaterally Cardio: COMMON NORMALS: regular rate and regular rhythm RATE: regular rate RHYTHM: regular rhythm Extremity: COMMON NORMALS: normal to inspection GENERAL: Yes normal exam except as noted Neuro: EMY COMA SCALE: document GCS findings Emy coma scale eye opening: Spontaneous [place] coma scale verbal response: Orientated Emy coma scale motor response: Obey commands Emy coma scale total score: 15 COMMON NORMALS: patient oriented x3, CN's II-XII intact bilaterally, moves all extremities, no focal motor deficits, no sensory deficits noted and gait normal SENSORIUM/ORIENTATION: Yes alert, Yes oriented to person, Yes oriented to place and Yes oriented to time MENINGEAL SIGNS: Yes no meningeal signs SPEECH: speech normal GAIT: Yes Normal gait present MOTOR EXAM: 5/5 motor strength present throughout Skin: COMMON NORMALS: no rashes or lesions noted GENERAL SKIN EXAM: no rashes or lesions noted Course Vital Signs: Vital signs: Vital Signs Temperature 98.3 F 08/05/21 08:50 Pulse Rate 68 08/05/21 08:50 Respiratory Rate 18 08/05/21 08:50 Blood Pressure 127/97 08/05/21 08:50 Pulse Oximetry 96 08/05/21 08:50 [facility] - General Adult Medical Decision Making Patient here with complaints of dizziness, brain fog, chronic intermittent chest pains. Patient states he has been having nonspecific symptoms over the past 2 years. He has been diagnosed with anxiety previously. Patient was mildly hypertensive upon arrival however during my reassessment BP is down to 120s/80s without any form of intervention here. Despite his dizziness his gait is steady. He is not having any visual changes. Nothing on history/physical exam t o suggest any specific central or peripheral cause for his dizziness. Patient had a head CT performed 2 to 3 days ago that was normal. Blood work here including TSH and drug screen are negative. His EKG shows sinus rhythm. At this time patient is stable to follow-up with his primary care provider on Thursday as scheduled. Turn to ED precautions were verbally discussed with patient. Lab Data : 08/05/21 09:25 08/05/21 09:25 Radiology Impressions Chest X-Ray 08/05/21 09:08 IMPRESSION: No acute findings. Laboratory Results WBC 6.5 10^3/uL (4.5-13.0) 08/05/21 09:25 RBC 5.25 10^6/uL (4.1-5.3) 08/05/21 09:25 Hgb 16.1 g/dL (11.7-16.6) 08/05/21 09:25 Hct 46.7 % (42.0-52.0) 08/05/21 09:25 MCV 89.0 fl (80-94) 08/05/21 09:25 MCH 30.7 pg (28.0-34.0) 08/05/21 09:25 MCHC 34.5 g/dL (30.0-36.0) 08/05/21 09:25 RDW 11.6 % (12.1-15.1) L 08/05/21: Plt Count 226 10^3/cmm (130-400) 08/05/21:25 MPV 10.0 fL (7.4-10.4) 08/05/21 09:25 Neut % (Auto) 66.1 % 08/05/21 09:25 Lymph % (Auto) 22.4 % 08/05/21 09:25 [place] % (Auto) 9.5 % 08/05/21 09:25 Eos % (Auto) 1.2 % 08/05/21:25 Baso % (Auto) 0.5 % 08/05/21:25 Neut # (Auto) 4.32 10^3/uL (1.8-8.0) 08/05/21 09:25 Lymph # (Auto) 1.5 10^3/uL (1.5-6.5) 08/05/21 09:25 [place] # (Auto) 0.6 10^3/uL (0.2-0.9) 08/05/21 09:25 Eos # (Auto) 0.1 10^3/uL (0.0-0.8) 08/05/21:25 Baso # (Auto) 0.0 10^3/uL (0.0-0.1) 08/05/21 09:25 Nucleated RBC % (auto) 0 % 08/05/21:25 Nucleated RBCs # 0.0 /100WBC 08/05/21 09:25 Sodium 137 mmol/L (136-145) 08/05/21 09:25 Potassium 4.1 mmol/L (3.5-5.1) 08/05/21 09:25 Chloride 102 mmol/L (98-107) 08/05/21 09:25 Carbon Dioxide 22 mmol/L (22-29) 08/05/21 09:25 Anion Gap 17.1 (5-19) 08/05/21 09:25 BUN 13 mg/dL (6-20) 08/05/21 09:25 Creatinine 0.7 mg/dL (0.7-1.2) 08/05/21 09:25 GFR Calculation 143.8 mL/min (90-130) H 08/05/21 09:25 Glucose 101 mg/dL (65-115) 08/05/21 09:25 Calculated Osmolality 284 mOsm/kg (285-295) L 08/05/21 09:25 Calcium 9.2 mg/dL (8.5-10.5) 08/05/21 09:25 Total Bilirubin 0.7 mg/dL (0.15-1.2) 08/05/21 09:25 AST 19 U/L (0-40) 08/05/21 09:25 ALT 20 U/L (0-41) 08/05/21 09:25 Alkaline Phosphatase 68 IU/L (40-130) 08/05/21 09:25 Total Protein 7.0 g/dL (6.6-8.7) 08/05/21 09:25 Albumin 4.7 g/dL (3.5-5.2) 08/05/21 09:25 Globulin 2.3 g/dL (1.3-4.6) 08/05/21 09:25 TSH 2.32 uIU/mL (0.27-4.20) 08/05/21 09:25 Urine Opiates Screen Negative ng/mL (Negative) 08/05/21 09:30 Ur Barbiturates Screen Negative ng/mL (Negative) 08/05/21 09:30 Ur Phencyclidine Scrn Negative ng/mL (Negative) 08/05/21 09:30 Ur Amphetamines Screen Negative ng/mL (Negative) 08/05/21 09:30 U Benzodiazepines Scrn Negative ng/mL (Negative) 08/05/21 09:30 Urine Cocaine Screen Negative ng/mL (Negative) 08/05/21 09:30 U Marijuana (THC) Screen Negative ng/mL (Negative) 08/05/21 09:30 Discharge Plan Discharge Patient Disposition: Home Clinical Impression: Dizziness Condition: Stable Prescriptions: No Action multivitamin Tablet 1 tab PO DAILY 0RF Discharge Orders: Discharge ED (Routine); Ordered 08/05/21 Ordered By: Dania Rodriguez Referrals: Tommie Rivera MD [Primary Care Provider] - Coding Level of Care Code ED Phys Ther for Chg Fwd Exam Comprehensive
--- NOTE | 2021-08-05 09:08 | XRR_ITS ---
PROCEDURE INFORMATION: Exam: XR Chest Exam date and time: 08/05/2021 9:13 AM Age: 21 years old Clinical indication: Shortness of breath; Angina pectoris; Patient HX: --chest pain SOB x 2 1/2 years TECHNIQUE: Imaging protocol: XR of the chest. Views: 1 view. COMPARISON: CR XR chest 1V portable [id number] 08/02/2021 3:23 PM FINDINGS: Lungs: Unremarkable. No consolidation. Pleural spaces: Unremarkable. No pleural effusion. No pneumothorax. Heart/Mediastinum: Unremarkable. No cardiomegaly. Bones/joints: Unremarkable. XR/XR chest 1V portable [id number] IMPRESSION: No acute findings.
[2021-08-05 09:31] LABS: Basophils % 0.5 %; Eosinophils # 0.1 10^3/uL (0.0-0.8); Eosinophils % 1.2 %; Hematocrit 46.7 % (42.0-52.0); Hemoglobin 16.1 g/dL (11.7-16.6); Lymphocytes # 1.5 10^3/uL (1.5-6.5); Lymphocytes % 22.4 %; Mean Corpuscular HGB Conc 34.5 g/dL (30.0-36.0); Mean Corpuscular Hemoglobin 30.7 pg (28.0-34.0); Monocytes # 0.6 10^3/uL (0.2-0.9); Monocytes % 9.5 %; Neutrophils # 4.32 10^3/uL (1.8-8.0); Neutrophils % 66.1 %; Nucleated Red Blood Cells % 0 %; Platelet Count 226 10^3/cmm (130-400); Red Blood Count 5.25 10^6/uL (4.1-5.3); Red Cell Distribution Width 11.6 % (12.1-15.1); White Blood Count 6.5 10^3/uL (4.5-13.0)
[2021-08-05 10:03] LABS: Amphetamines Screen Urine Negative (Negative); Barbiturates Screen Urine Negative (Negative); Benzodiazepines Screen Urine Negative (Negative); Cocaine Screen Urine Negative (Negative); Opiate Screen Urine Negative (Negative); PCP Screen Urine Negative (Negative); THC Screen Urine Negative (Negative)
[2021-08-05 10:03] LABS: Alanine Aminotransferase 20 U/L (0-41); Albumin Level 4.7 g/dL (3.5-5.2); Alkaline Phosphatase 68 IU/L (40-130); Anion Gap 17.1 (5-19); Aspartate Amino Transferase 19 U/L (0-40); Blood Urea Nitrogen 13 mg/dL (6-20); Calcium 9.2 mg/dL (8.5-10.5); Carbon Dioxide 22 mmol/L (22-29); Chloride 102 mmol/L (98-107); Globulin 2.3 g/dL (1.3-4.6); Glomerular Filtration Rate 143.8 mL/min (90-130); Glucose 101 mg/dL (65-115); Osmolality Calculated 284 mOsm/kg (285-295); Potassium 4.1 mmol/L (3.5-5.1); Sodium 137 mmol/L (136-145); Thyroid Stimulating Hormone 2.32 uIU/mL (0.27-4.20); Total Bilirubin 0.7 mg/dL (0.15-1.2)
[2021-08-05 10:18] VITALS: BP 159/84; PULSE 68; RESP 18; TEMP 36.9; O2SAT 96
== END 2021-08-05 10:24 | disposition home or self-care (01) ==
PROVIDERS: Emergency Provider Physician Assistant; PCP Family Medicine Adult Medicine
DX: R42 Dizziness and giddiness (principal); R07.89 Other chest pain; R51.9 Headache, unspecified
CPT/HCPCS: 71045; 80053; 80306; 84443; 85025; 93005; 99283

== ENCOUNTER 2021-08-23 21:56 | Emergency (ER) | payer SELFPAY ==
[2021-08-23 22:20] VITALS: BP 152/89; PULSE 90; RESP 16; TEMP 36.6; O2SAT 98; BMI 29.6
--- NOTE | 2021-08-24 01:01 | ECG_ITS ---
[facility] Test Date: 2021-08-24 Pat Name: Senia Fuentes Department: Room: Gender: Male Baker Paint: : 2000 Requested By: Vikram Dahl Order Number: [id number] Villagomez MD: Ike Kwon M.D. Measurements Intervals [place] Rate: 77 P: 43 VT: 116 QRS: 75 QRSD: 121 T: 57 QT: 366 QTc: 414 Interpretive Statements SINUS RHYTHM WITH SHORT VT INTERVAL MODERATE INTRAVENTRICULAR CONDUCTION DELAY [110+ ms QRS DURATION] Compared to ECG 08/05/2021 09:35:08 Short VT interval now present Intraventricular conduction delay now present Electronically Signed On 08-24-2021 9:23:02 CDT by Ike Kwon M.D. [id number]
[2021-08-24 01:02] VITALS: BP 133/86; PULSE 86; RESP 18; O2SAT 99
[2021-08-24 01:30] VITALS: BP 126/76; PULSE 85; RESP 18; O2SAT 98
[2021-08-24 02:00] VITALS: BP 139/70; PULSE 84; RESP 18; O2SAT 98
[2021-08-24] MEDS: LORazepam 2 mg/mL INJ 1 mL 1 MG IVP (02:34)
[2021-08-24 02:48] LABS: Hemoglobin 15.1 g/dL (11.7-16.6); Mean Corpuscular HGB Conc 34.3 g/dL (30.0-36.0); Mean Corpuscular Hemoglobin 30.6 pg (28.0-34.0); Mean Corpuscular Volume 89.2 fl (80-94); Mean Platelet Volume 10.5 fL (7.4-10.4); Platelet Count 217 10^3/cmm (130-400); Red Blood Count 4.93 10^6/uL (4.1-5.3); Red Cell Distribution Width 11.7 % (12.1-15.1); White Blood Count 9.8 10^3/uL (4.5-13.0)
[2021-08-24 02:58] LABS: Troponin T (5th) Once 6 ng/L (0-15)
[2021-08-24 02:59] LABS: Alanine Aminotransferase 102 U/L (0-41); Albumin Level 4.5 g/dL (3.5-5.2); Alkaline Phosphatase 66 IU/L (40-130); Aspartate Amino Transferase 56 U/L (0-40); Blood Urea Nitrogen 10 mg/dL (6-20); Carbon Dioxide 20 mmol/L (22-29); Chloride 105 mmol/L (98-107); Globulin 2.6 g/dL (1.3-4.6); Glomerular Filtration Rate 143.8 mL/min (90-130); Glucose 103 mg/dL (65-115); Osmolality Calculated 289 mOsm/kg (285-295); Sodium 140 mmol/L (136-145); Total Bilirubin 0.4 mg/dL (0.15-1.2); Total Protein 7.1 g/dL (6.6-8.7)
[2021-08-24 03:03] LABS: Anion Gap 18.7 (5-19); Potassium 3.7 mmol/L (3.5-5.1)
[2021-08-24 03:20] LABS: Absolute Neutrophil 7.1 10^3/cmm (1.4-6.5); Absolute Segmented Neutrophil 6.9 10/cmm (1.6-7.1); Band Neutrophils Absolute 0.2 10^3/cmm (0.0-1.2); Eosinophils 1 %; Lymphocytes 21 %; Lymphocytes Absolute 2.1 10^3/cmm (1.2-3.4); Monocytes Absolute 0.6 10^3/cmm (0.1-0.6); Platelet Estimate Normal (Normal); Segmented Neutrophils 70 %; Total Cells Counted 100 (0-100)
--- NOTE | 2021-08-24 17:26 | W.ED.ANXIETY ---
HPI - Anxiety General: Chief Complaint: Anxiety Stated Complaint: feeling Dizzy Time Seen by Provider: 08/24/21 01:46 Source: patient History of Present Illness: 21-year-old male with a history of anxiety. He presents to the ER, for the third time I believe, with feelings of dizziness, chest discomfort, palpitations, shortness of breath. He notes this has become a daily thing for him. He was placed on mirtazapine for this a couple of weeks ago. He notes that it does not seem to be helping. He is feeling better currently, but still has some of these feelings. He asks what should I do . He denies fever. He denies current chest pain. He states at times it feels as though he may pass out. MD complaint: anxiety, heart racing, shortness of breath and other Onset (ago): hour(s) Symptoms: dyspnea, chest pain, palpitations and sense of impending doom Severity: moderate Quality: intermittent Place: home History of similar episodes: Yes Provoking factors: none known Associated symptoms: Reports chest pain, nausea, palpitations and short of breath; Deny confusion, diaphoresis, fever(s), headache(s), syncope, vomiting or weakness Review of Systems Const: Denies: fever(s) or diaphoresis Card: Reports: chest pain and palpitations; Denies: syncope Resp: Reports: dyspnea; Denies: productive cough or non-productive cough GI: Reports: nausea; Denies: vomiting Neuro: Denies: headache(s) or confusion Psych: Reports: anxiety PFS ED PFSH: Medical History Anxiety Dizziness Encounter for screening laboratory testing for COVID-19 virus History of abdominal hernia Family History Other CAD (coronary artery disease) Diabetes Social History Smoking and tobacco status: former smoker Alcohol intake: current Alcohol intake frequency: holidays/special occasions only Marital status: Single Number of children: 0 Current occupational status: employed Physical Exam Const: GENERAL APPEARANCE: cooperative and anxious; not ill appearing HENMT: COMMON NORMALS: normocephalic, atraumatic and Normal external nose present HEAD & SCALP: normocephalic and atraumatic FACE & SINUS: normal facial exam NOSE: Normal external nose present Eye: COMMON NORMALS: Equal, round and reactive pupils present and EOMs intact bilaterally PUPIL: Yes Equal, round and reactive pupils present Neck/C-Spine: GENERAL: Yes trachea midline Chest: CHEST: Yes Symmetrical chest wall rise Resp: COMMON NORMALS: normal respiratory effort, No retractions, No use of accessory muscles and clear to auscultation bilaterally AUSCULTATION: clear to auscultation bilaterally Cardio: COMMON NORMALS: regular rate and regular rhythm RATE: regular rate RHYTHM: regular rhythm GI: COMMON NORMALS: Normal to inspection, nondistended, normoactive bowel sounds present, Soft to palpation and non-tender PALPATION: Yes Soft to palpation Extremity: COMMON NORMALS: no pedal edema Neuro: EMY COMA SCALE: document GCS findings [place] coma scale eye opening: Spontaneous Emy coma scale verbal response: Orientated [place] coma scale motor response: Obey commands Emy coma scale total score: 15 Psych: COMMON NORMALS: mental status grossly normal Course Vital Signs: Vital signs: Vital Signs Temperature 97.8 F 08/23/21 22:20 Pulse Rate 84 08/24/21 02:00 Respiratory Rate 18 08/24/21 02:00 Blood Pressure 139/70 08/24/21 02:00 Pulse Oximetry 98 08/24/21 02:00 MDM - Anxiety Medical Decision Making Laboratory work-up is essentially normal including EKG. he has had multiple work-ups for this. Symptoms are improved with Ativan. He will be discharged home a short course of lorazepam to follow-up with his primary physician. Lab Data : 08/24/21 01:50 08/24/21 01:50 Laboratory Results WBC 9.8 10^3/uL (4.5-13.0) 08/24/21 01:50 RBC 4.93 10^6/uL (4.1-5.3) 08/24/21 01:50 Hgb 15.1 g/dL (11.7-16.6) 08/24/21 01:50 Hct 44.0 % (42.0-52.0) 08/24/21 01:50 MCV 89.2 fl (80-94) 08/24/21 01:50 MCH 30.6 pg (28.0-34.0) 08/24/21 01:50 MCHC 34.3 g/dL (30.0-36.0) 08/24/21 01:50 RDW 11.7 % (12.1-15.1) L 08/24/21 01:50 Plt Count 217 10^3/cmm (130-400) 08/24/21 01:50 MPV 10.5 fL (7.4-10.4) H 08/24/21 01:50 Total Counted 100 (0-100) 08/24/21 01:50 Atypical Lymphs % 0.0 % (0-5) 08/24/21 01:50 Absolute Neutrophils 7.1 10^3/cmm (1.4-6.5) H 08/24/21 01:50 Segmented Neutrophils 70 % 08/24/21 01:50 Abs Segm Neuts (Man) 6.9 10/cmm (1.6-7.1) 08/24/21 01:50 Band Neutrophils 2.0 % 08/24/21 01:50 Abs Band Neuts (Man) 0.2 10^3/cmm (0.0-1.2) 08/24/21 01:50 Absolute Lymphocytes 2.1 10^3/cmm (1.2-3.4) 08/24/21 01:50 Lymphocytes (Manual) 21 % 08/24/21 01:50 Monocytes (Manual) 6.0 % 08/24/21 01:50 Absolute Monocytes 0.6 10^3/cmm (0.1-0.6) 08/24/21 01:50 Eosinophils (Manual) 1 % 08/24/21 01:50 Absolute Eosinophils 0.0 10^3/cmm (0.0-0.7) 08/24/21 01:50 Basophils (Manual) 0.0 % 08/24/21 01:50 Absolute Basophils 0.0 10^3/cmm (0.0-0.2) 08/24/21 01:50 Platelet Estimate Normal (Normal) 08/24/21 01:50 Sodium 140 mmol/L (136-145) 08/24/21 01:50 Potassium 3.7 mmol/L (3.5-5.1) 08/24/21 01:50 Chloride 105 mmol/L (98-107) 08/24/21 01:50 Carbon Dioxide 20 mmol/L (22-29) L 08/24/21 01:50 Anion Gap 18.7 (5-19) 08/24/21 01:50 BUN 10 mg/dL (6-20) 08/24/21 01:50 Creatinine 0.7 mg/dL (0.7-1.2) 08/24/21 01:50 GFR Calculation 143.8 mL/min (90-130) H 08/24/21 01:50 Glucose 103 mg/dL (65-115) 08/24/21 01:50 Calculated Osmolality 289 mOsm/kg (285-295) 08/24/21 01:50 Calcium 9.0 mg/dL (8.5-10.5) 08/24/21 01:50 Total Bilirubin 0.4 mg/dL (0.15-1.2) 08/24/21 01:50 AST 56 U/L (0-40) H 08/24/21 01:50 ALT 102 U/L (0-41) H 08/24/21 01:50 Alkaline Phosphatase 66 IU/L (40-130) 08/24/21 01:50 Troponin T Gen 5 ng/L 6 ng/L (0-15) 08/24/21 01:50 Total Protein 7.1 g/dL (6.6-8.7) 08/24/21 01:50 Albumin 4.5 g/dL (3.5-5.2) 08/24/21 01:50 Globulin 2.6 g/dL (1.3-4.6) 08/24/21 01:50 Discharge Plan Discharge Patient Disposition: Home Clinical Impression: Anxiety Condition: Stable Prescriptions: New lorazepam 1 mg tablet 1 mg PO BID PRN (Reason: anxiety) Qty: 14 0RF No Action mirtazapine [Remeron] 15 mg tablet 15 mg PO DAILY Qty: 30 1RF Discharge Orders: Discharge ED (Routine); Ordered 08/24/21 Ordered By: Vkiram Mckeon Referrals: Tommie Rivera MD [Primary Care Provider] - 4-7 days Patient Instructions: Anxiety (ED) Activity Restrictions/Additional Instructions: Return for worsening chest discomfort, shortness of breath, dizziness despite treatment. See your doctor next week. Only use medication for significant anxiety. Coding Level of Care Code ED Precision Assembler Bench for Chg Fwd Exam Comprehensive
== END 2021-08-24 03:29 | disposition home or self-care (01) ==
PROVIDERS: Emergency Provider Emergency Medicine; PCP Family Medicine Adult Medicine
DX: F41.9 Anxiety disorder, unspecified (principal)
CPT/HCPCS: 80053; 84484; 85007; 85027; 93005; 96374; 99284; J2060

== ENCOUNTER 2021-08-30 16:09 | Emergency (ER) | payer SELFPAY ==
[2021-08-30 16:32] VITALS: BP 168/88; PULSE 87; RESP 20; TEMP 37.1; O2SAT 98; BMI 30.5
--- NOTE | 2021-08-30 16:47 | ECG_ITS ---
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 Measurements Intervals [place] Rate: 71 P: 50 [place]: 140 QRS: 74 QRSD: 108 T: 56 QT: 365 QTc: 399 Interpretive Statements SINUS RHYTHM Compared to ECG 08/24/2021 01:16:41 Short [place] interval no longer present Intraventricular conduction delay no longer present Electronically Signed On 08-31-2021 0:30:26 CDT by Konrad Santos M.D. [id number] f
--- NOTE | 2021-08-30 16:48 | ED_ITS ---
HPI - General Adult General: Chief complaint: General Medical Stated complaint: Chest Tightness Time Seen by Provider: 08/30/21 16:47 History of Present Illness: 21-year-old male patient comes in today with anxiety. Patient reports some episodes of chest discomfort. He reports this since about 2:00 this afternoon. Patient did not have improvement and came to the ER for further evaluation. Patient has had recurrent episodes of the symptoms. Patient has no chronic medical issues that he is aware of. Patient recently been seen on the fourth of this month and treated for the same complaints. Patient reports he was unable to have the prescriptions filled due to cost and not having any money. Patient denies any early cardiac history in his family. Patient states his grandpa had a stroke and his grandma also had some cardiac problems but they were older than 50. Associated symptoms: Reports chest pain; Deny dyspnea Review of Systems General: Reports: 10 or more systems reviewed and unremarkable except in HPI and below Card: Reports: chest pain Resp: Denies: dyspnea Psych: Reports: anxiety REPLACED BY [facility] ED PFSH: Medical History Anxiety Dizziness Encounter for screening laboratory testing for COVID-19 virus History of abdominal hernia Family History Other CAD (coronary artery disease) Diabetes Social History Smoking and tobacco status: former smoker Alcohol intake: current Alcohol intake frequency: holidays/special occasions only Marital status: Single Number of children: 0 Current occupational status: employed Physical Exam Const: COMMON NORMALS: alert HENMT: COMMON NORMALS: normocephalic HEAD & SCALP: normocephalic Neck/C-Spine: COMMON NORMALS: full ROM Resp: COMMON NORMALS: clear to auscultation bilaterally EFFORT & INSPECTION: Yes able to speak in complete sentences AUSCULTATION: clear to auscultation bilaterally Cardio: COMMON NORMALS: regular rate and regular rhythm RATE: regular rate RHYTHM: regular rhythm Extremity: COMMON NORMALS: normal to inspection Neuro: SENSORIUM/ORIENTATION: Yes alert Psych: MOOD & AFFECT: Yes depressed mood Skin: COMMON NORMALS: no rashes or lesions noted GENERAL SKIN EXAM: no rashes or lesions noted Course Vital Signs: Vital signs: Vital Signs Temperature 98.7 F 08/30/21 16:32 Pulse Rate 87 08/30/21 16:32 Respiratory Rate 20 H 08/30/21 16:32 Blood Pressure 136/92 08/30/21 17:47 Pulse Oximetry 98 08/30/21 16:32 MDM - General Adult Medical Decision Making 21-year-old male patient comes in today for complaints of chest discomfort. On exam lung sounds are clear, heart tones are normal. Patient has a regular rate. Skin is warm and dry. No edema is noted in extremities. Vital signs are normal except for some elevation in blood pressure. Differential diagnosis includes but not limited to stable angina, anxiety, costochondritis. Review of the record noted that patient had been in the ER previously for similar complaints. Patient did have improvement of his symptoms last time with 1 mg Ativan p.o. Patient was given a dose of Ativan. EKG showed a normal sinus rhythm. Patient has barrier to care due to the no money. EKG Data EKG 1: EKG interpretation date: 08/30/21 EKG interpretation time: 17:05 Prior EKG tracings: available for review Interpretation: EKG shows 80 bpm with a regular rhythm. No ST elevation or ectopy is noted. No changes from prior exam. Normal sinus rhythm interpreted per computer. Discharge Plan Discharge Patient Disposition: Home Clinical Impression: Anxiety Condition: Stable Prescriptions: No Action mirtazapine [Remeron] 15 mg tablet 15 mg PO DAILY Qty: 30 1RF lorazepam 1 mg tablet 1 mg PO BID PRN (Reason: anxiety) Qty: 14 0RF Discharge Orders: Discharge ED (Routine); Ordered 08/30/21 Ordered By: Raffaele Shrestha Referrals: Tommie Rivera MD [Primary Care Provider] - Discharge Diet: Usual diet Discharge Activity: Increase activity as tolerated Patient Instructions: Panic Disorder (ED) Activity Restrictions/Additional Instructions: Activity as tolerated. Drink plenty of water. Find someone to talk to regarding your anxiety. Follow-up with primary care for further instructions. Return to ER for new concerns. Coding Level of Care Code ED Inker Machine for Chg Fwd Exam Comprehensive
[2021-08-30] MEDS: LORazepam 1 mg Tablet PO (17:12)
[2021-08-30 17:47] VITALS: BP 136/92
== END 2021-08-30 18:15 | disposition home or self-care (01) ==
PROVIDERS: Emergency Provider Nurse Practitioner Family; PCP Family Medicine Adult Medicine
DX: F41.9 Anxiety disorder, unspecified (principal)
CPT/HCPCS: 93005; 99283

== ENCOUNTER 2021-11-17 01:10 | Emergency (ER) | payer SELFPAY ==
[2021-11-17 01:16] VITALS: BP 161/99; PULSE 86; RESP 18; TEMP 37.1; O2SAT 98; BMI 32.6
[2021-11-17] MEDS: LORazepam 1 mg Tablet PO (04:29)
[2021-11-17 04:35] VITALS: BP 134/82; PULSE 71; RESP 16; O2SAT 97
--- NOTE | 2021-11-17 17:37 | W.ED.ANXIETY ---
HPI - Anxiety General: Chief Complaint: Anxiety Stated Complaint: Anxiety\Panic Attacks Time Seen by Provider: 11/17/21 03:51 History of Present Illness: 31yo male presents with anxiety symptoms with panic attack that is now resolved. he is still anxious and is quite worried that he will have Another one before he can get his medication counter recently provided by his PCP, filled at the pharmacy. He has been seen several times for similar symptoms. He is not depressed. He is not suicidal or homicidal. He denies fever or recent illness. Associated symptoms: Reports chest pain (resolved); Deny chills, confusion, fever(s), headache(s), nausea, palpitations or vomiting Review of Systems Const: Denies: fever(s), chills or body aches Eyes: Denies: change in vision Card: Reports: chest pain (resolved); Denies: palpitations Resp: Reports: dyspnea (resolved); Denies: productive cough, non-productive cough or wheezing GI: Denies: abdominal pain, nausea, vomiting, diarrhea or hematochezia Skin/Breast: Denies: rash Neuro: Reports: dizziness (resolved); Denies: headache(s), weakness in extremities or confusion Psych: Reports: anxiety and panic attacks; Denies: visual hallucinations, auditory hallucinations, suicidal ideation or homicidal ideation PFSH ED PFSH: Medical History Anxiety Dizziness Encounter for screening laboratory testing for COVID-19 virus History of abdominal hernia Weight gain, abnormal Family History Other CAD (coronary artery disease) Diabetes Social History Smoking and tobacco status: former smoker Alcohol intake: current Alcohol intake frequency: holidays/special occasions only Marital status: Single Number of children: 0 Current occupational status: employed Physical Exam Const: COMMON NORMALS: no acute distress GENERAL APPEARANCE: cooperative; not ill appearing and not frail appearing HENMT: COMMON NORMALS: normocephalic, atraumatic and Normal external nose present HEAD & SCALP: normocephalic and atraumatic FACE & SINUS: normal facial exam and face symmetric NOSE: Normal external nose present Eye: COMMON NORMALS: Equal, round and reactive pupils present and EOMs intact bilaterally PUPIL: Yes Equal, round and reactive pupils present Neck/C-Spine: GENERAL: Yes trachea midline Chest: CHEST: Yes Symmetrical chest wall rise Resp: COMMON NORMALS: normal respiratory effort, No retractions, No use of accessory muscles and clear to auscultation bilaterally AUSCULTATION: clear to auscultation bilaterally Cardio: COMMON NORMALS: regular rate and regular rhythm RATE: regular rate RHYTHM: regular rhythm GI: COMMON NORMALS: Normal to inspection, nondistended, normoactive bowel sounds present Extremity: COMMON NORMALS: no pedal edema Neuro: EMY COMA SCALE: document GCS findings Emy coma scale eye opening: Spontaneous Emy coma scale verbal response: Orientated Emy coma scale motor response: Obey commands [place] coma scale total score: 15 SENSORY EXAM: Yes extremities (intact) Psych: COMMON NORMALS: speech normal SPEECH: Yes normal speech Skin: COMMON NORMALS: no rashes or lesions noted GENERAL SKIN EXAM: no rashes or lesions noted Course Vital Signs: Vital signs: Vital Signs Temperature 98.7 F 11/17/21 01:16 Pulse Rate 71 11/17/21 04:35 Respiratory Rate 16 11/17/21 04:35 Blood Pressure 134/82 11/17/21 04:35 Pulse Oximetry 97 11/17/21 04:35 Oxygen Delivery Me thod 11/17/21 01:16 MDM - Anxiety Medical Decision Making he is given 1mg ativan orally here and atarax. he was told to fill his rx on thursday. medially he is perfectly stable and not intoxicated. Medical Records Discharge Plan Discharge Patient Disposition: Home Clinical Impression: Acute anxiety Condition: Stable Prescriptions: No Action citalopram [Celexa] 10 mg tablet 10 mg PO QAM Qty: 30 1RF mirtazapine 30 mg tablet 30 mg PO .qhs Qty: 30 3RF lorazepam 1 mg tablet 1 mg PO BID PRN (Reason: anxiety) Qty: 14 0RF Discharge Orders: Discharge ED (Routine); Ordered 11/17/21 Ordered By: Vikram Mckeon Referrals: Tommie Rivera MD [Primary Care Provider] - 4-7 days Patient Instructions: Anxiety (ED) Coding Level of Care Code ED Business Process Representative for Kelsy Abel
== END 2021-11-17 04:36 | disposition home or self-care (01) ==
PROVIDERS: Emergency Provider Emergency Medicine; PCP Family Medicine Adult Medicine
DX: F41.9 Anxiety disorder, unspecified (principal); Z87.891 Personal history of nicotine dependence
CPT/HCPCS: 99283

== ENCOUNTER 2022-01-12 23:58 | Emergency (ER) | payer MEDICAID, SELFPAY ==
[2022-01-13 00:10] VITALS: BP 156/91; PULSE 97; RESP 16; TEMP 36.7; O2SAT 98; BMI 33.5
--- NOTE | 2022-01-13 00:14 | W.ED.HA ---
HPI - Headache General: Chief Complaint: Headache Stated Complaint: headache Time Seen by Provider: 01/13/22 00:14 History of Present Illness: 21-year-old male patient comes in tonight with complaints of occipital headache. Patient denies any falls or injuries. Patient appears nontoxic. Patient has a history of anxiety and elevated blood pressure. Patient reports a headache for about 2 to 3 days. 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 Patient is use Tylenol with minimal relief of pain. Associated symptoms: Deny chest pain or fever(s) Review of Systems Const: Denies: fever(s) Card: Denies: chest pain Resp: Denies: dyspnea Musc: Reports: neck pain Neuro: Reports: headache(s) PFSH ED PFSH: Medical History Anxiety Dizziness Encounter for screening laboratory testing for COVID-19 virus History of abdominal hernia Weight gain, abnormal Family History Other CAD (coronary artery disease) Diabetes Social History Smoking and tobacco status: former smoker Alcohol intake: current Alcohol intake frequency: holidays/special occasions only Marital status: Single Number of children: 0 Current occupational status: employed Physical Exam Const: COMMON NORMALS: alert HENMT: COMMON NORMALS: normocephalic HEAD & SCALP: normocephalic Eye: GENERAL EYE: appearance normal, both eyes and all related structures Neck/C-Spine: COMMON NORMALS: full ROM CERVICAL SPINE: No Cervical spine tenderness, Yes Paracervical muscle tenderness and Yes Trapezius muscle tenderness Chest: COMMONS NORMALS: negative for normal palpation of entire chest wall Resp: COMMON NORMALS: normal respiratory effort Cardio: COMMON NORMALS: regular rate and regular rhythm RATE: regular rate RHYTHM: regular rhythm GI: COMMON NORMALS: non-tender Extremity: COMMON NORMALS: no pedal edema Neuro: SENSORIUM/ORIENTATION: Yes alert Skin: COMMON NORMALS: turgor normal GENERAL SKIN EXAM: turgor normal Course Vital Signs: Vital signs: Vital Signs Temperature 98.1 F 01/13/22 00:10 Pulse Rate 97 01/13/22 00:10 Respiratory Rate 16 01/13/22 00:10 Blood Pressure 156/91 01/13/22 00:10 Pulse Oximetry 98 01/13/22 00:10 Oxygen Delivery Me thod 01/13/22 00:10 MDM - Headache Medical Decision Making 21-year-old male patient comes in today for complaints of occipital headache. On exam patient has muscle tenderness of his paracervical muscles and his trapezius muscles bilaterally. No pinpoint spinal tenderness is noted. Vital signs are normal except for some mild elevation of blood pressure. Differential diagnosis includes intervertebral disc disease, muscle strain, torticollis, tension type headache. Patient has a tension type headache. Patient was given a dose of Toradol, dexamethasone, and orphenadrine. Patient be continued on naproxen and Phenergan. Recommend patient follow-up with primary care for further instruction. Return to ED for new concerns. Discharge Plan Discharge Patient Disposition: Home Clinical Impression: Tension headache Condition: Stable Prescriptions: New naproxen 500 mg tablet 500 mg PO BID PRN (Reason: headache) Qty: 20 0RF promethazine 25 mg tablet 25 mg PO BID Qty: 20 0RF Rx Instructions: Take with naproxen for headache No Action citalopram [Celexa] 10 mg tablet 10 mg PO QAM Qty: 30 1RF mirtazapine 30 mg tablet 30 mg PO .qhs Qty: 30 3RF lorazepam 1 mg tablet 1 mg PO BID PRN (Reason: anxiety) Qty: 14 0RF Discharge Orders: Discharge ED (Routine); Ordered 01/13/22 Ordered By: Raffaele Shrestha Referrals: Tommie Rivera MD [Primary Care Provider] - Discharge Diet: Usual diet Discharge Activity: Increase activity as tolerated Patient Instructions: Tension Headache (ED), Core Strengthening Exercises (ED) Activity Restrictions/Additional Instructions: Home and rest. Activity as tolerated. Gentle stretching and range of motion exercises for the neck. Drink plenty of water with medication. Follow-up with your primary care for further evaluation and treatment. Return to ED for new concerns. Stand Alone Forms: Work/School Release Coding Level of Care Code ED Academic Program Specialist for Kelsy Abel
[2022-01-13] MEDS: ketorolac 30 mg/mL INJ IM (00:50)
[2022-01-13] MEDS: dexamethasone 10 mg/mL INJ IM (00:50)
[2022-01-13 01:24] VITALS: BP 145/76; PULSE 90; RESP 16; TEMP 36.7; O2SAT 99
== END 2022-01-13 01:10 | disposition home or self-care (01) ==
PROVIDERS: Emergency Provider Nurse Practitioner Family; PCP Family Medicine Adult Medicine
DX: G44.209 Tension-type headache, unspecified, not intractable (principal); Z87.891 Personal history of nicotine dependence
CPT/HCPCS: 96372; 99284; J1100; J1885

== ENCOUNTER 2022-01-26 20:33 | Emergency (ER) | payer MEDICAID, SELFPAY ==
[2022-01-26 20:42] VITALS: BP 163/106; PULSE 79; RESP 18; TEMP 36.6; O2SAT 98; BMI 34.2
--- NOTE | 2022-01-26 20:53 | W.ED.HA ---
HPI - Headache General: Chief Complaint: Headache Stated Complaint: headache Time Seen by Provider: 01/26/22 20:51 History of Present Illness: 21-year-old male patient comes in today for persistent headache. Patient was seen about 2 weeks ago for the same headache he did report some improvement after initial treatment but the headache for the last week has been steady and without any improvement. Patient appears nontoxic. Patient appears in no acute distress. Patient does have a history of anxiety. Associated symptoms: Deny fever(s) Review of Systems Const: Denies: fever(s) Neuro: Reports: headache(s) PFSH ED PFSH: Medical History Anxiety Dizziness Encounter for screening laboratory testing for COVID-19 virus History of abdominal hernia Weight gain, abnormal Family History Other CAD (coronary artery disease) Diabetes Social History Smoking and tobacco status: former smoker Alcohol intake: current Alcohol intake frequency: holidays/special occasions only Marital status: Single Number of children: 0 Current occupational status: employed Physical Exam Const: COMMON NORMALS: patient oriented x3 and alert HENMT: COMMON NORMALS: normocephalic HEAD & SCALP: normocephalic Neck/C-Spine: COMMON NORMALS: full ROM Resp: COMMON NORMALS: normal respiratory effort Cardio: COMMON NORMALS: regular rate and regular rhythm RATE: regular rate RHYTHM: regular rhythm Extremity: COMMON NORMALS: normal to inspection Neuro: EMY COMA SCALE: document GCS findings Emy coma scale eye opening: Spontaneous Emy coma scale verbal response: Orientated [place] coma scale motor response: Obey commands [place] coma scale total score: 15 COMMON NORMALS: patient oriented x3 and no focal motor deficits SENSORIUM/ORIENTATION: Yes alert Skin: COMMON NORMALS: no rashes or lesions noted GENERAL SKIN EXAM: no rashes or lesions noted Course Vital Signs: Vital signs: Vital Signs Temperature 97.8 F 01/26/22 20:42 Pulse Rate 79 01/26/22 20:42 Respiratory Rate 18 01/26/22 20:42 Blood Pressure 163/106 01/26/22 20:42 Pulse Oximetry 98 01/26/22 20:42 Oxygen Delivery Me thod 01/26/22 20:42 MDM - Headache Medical Decision Making 21-year-old male comes in today with persistent recurrent headache. On exam patient has no focal neural deficits. Pupils are equal reactive. Patient moves all extremities well. Posterior pharynx is pink and moist. Patient does have some muscle tightness in the neck. Differential diagnosis includes but not limited to malingering, tension headache, migraine headache, anxiety. I believe patient probably more likely has a tension headache secondary to his anxiety. Patient is to see his primary care next Thursday. Says he had this persistent headache and has been to the ER 2-3 times already for the same headache we will go ahead and arrange for patient to follow-up with neurologist. Patient was given a dose of Reglan, Toradol, and dexamethasone in the ER to help with his pain and symptoms. Patient reported understanding agreed to plan. Discharge Plan Discharge Patient Disposition: Home Clinical Impression: Headache Qualifiers: Headache type: tension-type Headache chronicity pattern: unspecified pattern Intractability: intractable Qualified Code(s): G44.201 - Tension-type headache, unspecified, intractable Condition: Stable Prescriptions: No Action citalopram [Celexa] 10 mg tablet 10 mg PO QAM Qty: 30 1RF mirtazapine 30 mg tablet 30 mg PO .qhs Qty: 30 3RF lorazepam 1 mg tablet 1 mg PO BID PRN (Reason: anxiety) Qty: 14 0RF naproxen 500 mg tablet 500 mg PO BID PRN (Reason: headache) Qty: 20 0RF promethazine 25 mg tablet 25 mg PO BID Qty: 20 0RF Rx Instructions: Take with naproxen for headache Discharge Orders: Discharge ED (Routine); Ordered 01/26/22 Ordered By: Raffaele Shrestha Referrals: Tommie Rivera MD [Primary Care Provider] - Discharge Diet: Usual diet Discharge Activity: Increase activity as tolerated Patient Instructions: General Headache (ED) Activity Restrictions/Additional Instructions: Home and rest. Drink plenty of fluids. Case management is going to contact you regarding an appointment with neurology for further evaluation. Continue with home medications routinely as directed. Keep appointment with primary care as scheduled. Return to ER for worsening symptoms or new concerns. Coding Level of Care Code ED Prospect Manager for Kelsy Abel
[2022-01-26] MEDS: metoclopramide 10 mg Tablet PO (21:39)
[2022-01-26] MEDS: dexamethasone 4 mg Tablet 10 MG PO (21:39)
[2022-01-26] MEDS: ketorolac 10 mg Tablet PO (21:39)
[2022-01-26 21:43] VITALS: PULSE 87; RESP 16; O2SAT 97
--- NOTE | 2022-01-27 13:47 | DCPLANNER ---
Addendum entered by Lea Ortiz 03/11/22 14:38: sap project manager received the following message from neurology regarding follow up appointment: Patient stated that he had seen his PCP and he gave new meds He is feeling better. He did not want this appt. Original Note: sap project manager had message to schedule a follow up appointment for patient with neurology. sap project manager sent patients information to the front office staff at neurology. Patients information will be printed and reviewed. Clinic will call patient with appointment information.
== END 2022-01-26 21:44 | disposition home or self-care (01) ==
PROVIDERS: Emergency Provider Nurse Practitioner Family; PCP Family Medicine Adult Medicine
DX: G44.201 Tension-type headache, unspecified, intractable (principal)
CPT/HCPCS: 99284; J8540; J8597

== ENCOUNTER 2022-02-14 16:06 | Emergency (ER) | payer MEDICAID, SELFPAY ==
[2022-02-14 16:12] VITALS: BP 162/85; PULSE 88; RESP 16; TEMP 36.6; O2SAT 94
--- NOTE | 2022-02-14 18:07 | ED_ITS ---
HPI - Headache General: Chief Complaint: Headache Stated Complaint: Heache Time Seen by Provider: 02/14/22 18:02 Source: patient Mode of arrival: ambulatory Limitations: no limitations History of Present Illness: 21-year-old male has had a history of headaches. He states he has been having general headache over the last day. He states it began gradually is worsened pain is currently an 8 out of 10 is some mild photophobia denies any neck pain denies any fever denies any vomiting. Associated symptoms: Deny chest pain, fever(s), nausea, rash or vomiting Review of Systems Const: Denies: fever(s), chills, body aches or change in appetite Eyes: Denies: blurry vision or eye discomfort ENMT: Denies: throat pain or dental pain Card: Denies: chest pain Resp: Denies: dyspnea GI: Denies: abdominal pain, nausea, vomiting or diarrhea : Denies: dysuria Musc: Denies: neck pain or back pain Skin/Breast: Denies: rash Neuro: Reports: headache(s) Psych: Denies: depression Eliazar/Lymph: Denies: easy bruising All/Imm: Denies: urticaria PFSH ED PFSH: Medical History Dizziness Encounter for screening laboratory testing for COVID-19 virus Generalized anxiety disorder with panic attacks History of abdominal hernia Weight gain, abnormal Family History Other CAD (coronary artery disease) Diabetes Social History Smoking and tobacco status: former smoker Alcohol intake: current Alcohol intake frequency: holidays/special occasions only Desire information about substance/drug rehabilitation?: No Marital status: Single Number of children: 0 Current occupational status: employed Physical Exam Const: COMMON NORMALS: no acute distress, patient oriented x3 and healthy appearing HENMT: COMMON NORMALS: normocephalic and atraumatic HEAD & SCALP: normocephalic and atraumatic Eye: COMMON NORMALS: Equal, round and reactive pupils present and EOMs intact bilaterally PUPIL: Yes Equal, round and reactive pupils present Neck/C-Spine: COMMON NORMALS: full ROM and supple Chest: COMMONS NORMALS: normal inspection of the chest and normal palpation of entire chest wall Resp: COMMON NORMALS: normal respiratory effort, No retractions, No use of accessory muscles and clear to auscultation bilaterally AUSCULTATION: clear to auscultation bilaterally Cardio: COMMON NORMALS: regular rate, regular rhythm and No murmurs present (Cardio) RATE: regular rate RHYTHM: regular rhythm GI: COMMON NORMALS: Normal to inspection, nondistended, normoactive bowel sounds present, Soft to palpation, non-tender and no masses PALPATION: Yes Soft to palpation Extremity: COMMON NORMALS: normal to inspection and full ROM Neuro: COMMON NORMALS: patient oriented x3, moves all extremities and no focal motor deficits Psych: COMMON NORMALS: mental status grossly normal, Normal thought process present and cooperative THOUGHT PROCESS: Normal thought process present Skin: COMMON NORMALS: no rashes or lesions noted and no wounds GENERAL SKIN EXAM: no rashes or lesions noted Course Vital Signs: Vital signs: Vital Signs Temperature 97.8 F 02/14/22 16:12 Pulse Rate 88 02/14/22 16:12 Respiratory Rate 16 02/14/22 16:12 Blood Pressure 162/85 02/14/22 16:12 Pulse Oximetry 94 02/14/22 16:12 Oxygen Delivery Me thod 02/14/22 16:12 MDM - Headache Medical Decision Making Patient presents here with a headache is likely tension headache he is well- appearing here he has no signs of meningitis or subarachnoid hemorrhage she feels improved here he is stable for discharge she is to follow-up with PCP and return if worsening. Discharge Plan Discharge Patient Disposition: Home Clinical Impression: Headache Condition: Stable Prescriptions: No Action lorazepam 1 mg tablet 1 mg PO BID PRN (Reason: anxiety) 7 Days Qty: 14 0RF meloxicam 15 mg tablet 15 mg PO DAILY Qty: 30 1RF Discharge Orders: Discharge ED (Routine); Ordered 02/14/22 Ordered By: Eduin Shirley Referrals: Tommie Rivera MD [Primary Care Provider] - 1-3 days Discharge Diet: Advance as tolerated Discharge Activity: Resume usual activity Patient Instructions: Acute Headache (ED) Coding Level of Care Code ED Learning And Development Intern for Chg Fwd Exam Comprehensive
[2022-02-14] MEDS: ketorolac 30 mg/mL INJ IVP (18:14)
[2022-02-14] MEDS: metoclopramide 5 mg/mL SDV 2 mL 10 MG IVP (18:14)
[2022-02-14] MEDS: diphenhydrAMINE 50 mg/mL SDV 1mL IVP (18:30)
== END 2022-02-14 18:44 | disposition home or self-care (01) ==
PROVIDERS: Emergency Provider Emergency Medicine; PCP Family Medicine Adult Medicine
DX: R51.9 Headache, unspecified (principal); Z87.891 Personal history of nicotine dependence
CPT/HCPCS: 96374; 96375; 99284; J1200; J1885; J2765